=== PATIENT | female | born 1980 | race African-American/Black ===

== ENCOUNTER 2016-06-23 21:19 | Emergency (ER) | payer SELFPAY ==
--- NOTE | 2016-06-24 03:09 | ER Document Report ---
ED Flu Like - General Chief Complaint: Flu Symptoms Stated Complaint: FLU LIKE SYMPTOMS Time seen by provider: 03:04 Mode of Arrival: Ambulatory Information source: Patient Notes: 35-year-old female presents to ED for cough congestion sore throat bodyaches and nasal drainage since Thursday. She denies any fever or nausea or vomiting. TRAVEL OUTSIDE OF THE [place] IN LAST 30 DAYS: No - HPI Onset: Other - Thursday Timing/Duration: Persistent Quality of pain: Achy Severity: Moderate Pain Level: 3 CO exposure: No Associated symptoms: Body/muscle aches, Nonproductive cough, Rhinnorhea. denies : Fever Similar symptoms previously: Yes - Related Data Allergies/Adverse Reactions: amoxicillin Allergy (Verified 06/23/16 22:16) Past Medical History - General Information source: Patient - Social History Smoking Status: Current Every Day Smoker Cigarette use (# per day): Yes - 5-6 cigarettes a day Chew tobacco use (# tins/day): No Smoking Education Provided: Yes - less than 2 minutes Frequency of alcohol use: Occasional Drug Abuse: Marijuana Occupation: assisted living Lives with: Alone - With child Family History: CAD, COPD, CVA, DM, Hypertension Patient has suicidal ideation: No Patient has homicidal ideation: No - Past Medical History Cardiac Medical History: Reports: None Pulmonary Medical History: Reports: Hx Asthma - as a child EENT Medical History: Reports: None Neurological Medical History: Reports: None Endocrine Medical History: Reports: None Renal/ Medical History: Reports: None Malignancy Medical History: Reports: None GI Medical History: Reports: None Musculoskeltal Medical History: Reports None Skin Medical History: Reports None Psychiatric Medical History: Reports: None Traumatic Medical History: Reports: None Infectious Medical History: Reports: None Surgical Hx: Negative Past Surgical History: Reports: None - Immunizations Immunizations up to date: Yes Hx Diphtheria, Pertussis, Tetanus Vaccination: Yes Review of Systems - Review of Systems Constitutional: No symptoms reported EENT: No symptoms reported, Nose discharge, Sinus discharge Cardiovascular: No symptoms reported Respiratory: Cough Gastrointestinal: No symptoms reported Genitourinary: No symptoms reported Female Genitourinary: No symptoms reported Musculoskeletal: No symptoms reported Skin: No symptoms reported Hematologic/Lymphatic: No symptoms reported Neurological/Psychological: No symptoms reported -: Yes All other systems reviewed and negative Physical Exam - Vital signs Vitals: Temp Pulse Resp BP 97.9 F 90 18 122/80 06/23/16 22:02 06/23/16 22:02 06/23/16 22:02 06/23/16 22:02 Interpretation: Normal - General General appearance: Appears well, Alert - HEENT Head: Normocephalic, Atraumatic Eyes: Normal Pupils: PERRL Ears: Normal External canal: Normal Tympanic membrane: Normal Sinus: Normal Nasal: Normal Mouth/Lips: Normal Neck: Normal - Respiratory Respiratory status: No respiratory distress Chest status: Nontender Breath sounds: Nonproductive cough Chest palpation: Normal - Cardiovascular Rhythm: Regular Heart sounds: Normal auscultation Murmur: No - Abdominal Inspection: Normal Distension: No distension Bowel sounds: Normal Tenderness: Nontender Organomegaly: No organomegaly - Back Back: Normal, Nontender - Extremities General upper extremity: Normal inspection, Nontender, Normal color, Normal ROM , Normal temperature General lower extremity: Normal inspection, Nontender, Normal color, Normal ROM , Normal temperature, Normal weight bearing. No: Mariia's sign - Neurological Neuro grossly intact: Yes Cognition: Normal Orientation: AAOx4 Toribio Coma Scale Eye Opening: Spontaneous Toribio Coma Scale Verbal: Oriented Toribio Coma Scale Motor: Obeys Commands [place] Coma Scale Total: 15 Speech: Normal Motor strength normal: LUE, RUE, LLE, RLE Sensory: Normal - Psychological Associated symptoms: Normal affect, Normal mood - Skin Skin Temperature: Warm Skin Moisture: Dry Skin Color: Normal Course - Vital Signs Vital signs: Temp Pulse Resp BP Pulse Ox 97.9 F 90 18 122/80 06/23/16 22:02 06/23/16 22:02 06/23/16 22:02 06/23/16 22:02 Discharge - Discharge Clinical Impression: URI (upper respiratory infection) Qualifiers: URI type: unspecified URI Qualified Code(s): J06.9 - Acute upper respiratory infection, unspecified Condition: Stable Disposition: HOME, SELF-CARE Instructions: Family Physicians / Practices Additional Instructions: UPPER RESPIRATORY ILLNESS: You have a viral infection of the respiratory passages -- a "cold." This common infection causes nasal congestion, drainage, and often sore throat and cough. It is highly contagious. The disease usually lasts about 10 to 14 days. There is no "cure" for the viral infection -- it must run its course. If there is a complication, such as bacterial infection in the nose, sinuses, middle ear, or bronchial tubes, antibiotics may be required. The antibiotics won't affect the virus. Drink plenty of fluids. A humidifier may help. An expectorant medication or decongestant may make you more comfortable. Use acetaminophen or ibuprofen for fever or aches. See the doctor if fever persists over two days, if there is any significant worsening of your symptoms, or if you simply fail to improve as expected. DECONGESTANT MEDICATION: A decongestant medicine has been prescribed. Often this medicine is combined in the same tablet with an antihistamine or expectorant. This type of medicine is helpful in treating a bad cold or sinus condition, as well as in treatment of the nasal congestion of hay fever. It is not of much benefit for lung infections. Decongestant medicines are related to stimulants. They can cause an increase in blood pressure and heart rate. Persons with heart disease and high blood pressure should not take decongestants without discussing this with the physician. If you develop palpitations, chest pain, headache, or tremors, stop the medicine and consult your physician. COUGH-SUPPRESSANT & EXPECTORANT MEDICATION: You are to use a cough medication as needed for relief of symptoms. This medicine is a combination of an expectorant (to make the mucous thinner and more easily "coughed up") and a cough suppressant (to reduce the frequency of coughing). The cough-suppressant medicine is related to narcotics. You may experience mild nausea and sleepiness. Some patients who are very sensitive to narcotics may have stomach pain from this medicine. Taking the medicine with food reduces these side effects. Do not drive or work with machinery until you know how this medicine affects you. The expectorant should have no side effects. Iodine-containing expectorants (such as organidin) should not be taken by persons with active thyroid disease unless approved by your doctor. Call the doctor if you develop shortness of breath, hives, rash, itching, lightheadedness, or severe nausea and vomiting. USE OF ACETAMINOPHEN (Tylenol): Acetaminophen may be taken for pain relief or fever control. It's much safer than aspirin, offering a wider range of "safe" dosages. It is safe during . Some brand names are Tylenol, Panadol, Datril, Anacin 3, Tempra, and Liquiprin. Acetaminophen can be repeated every four hours. The following are maximum recommended dosages: >89 pounds or adults 650 mg to 900 mg Acetaminophen can be repeated every four hours. Maximum dose not to exceed 4000 mg a day. SMOKING: If you smoke, you should stop smoking. The tar and chemicals in cigarette smoke are harmful. Smoking has been shown to cause: emphysema chronic bronchitis lung cancer mouth and throat cancer stomach and pancreas cancer premature aging defects In addition, smoking increases ear and lung infections in children of smokers. FOLLOW-UP CARE: If you have been referred to a physician for follow-up care, call the physician s office for an appointment as you were instructed or within the next two days. If you experience worsening or a significant change in your symptoms, notify the physician immediately or return to the Emergency Department at any time for re-evaluation. Forms: Return to Work, Smoking Cessation Education
[2016-06-24 03:12] VITALS: BP 122/88
== END 2016-06-24 03:12 | disposition home or self-care (01) ==
LOC: ER 21:19
DX: J06.9 Acute upper respiratory infection, unspecified (principal); R05 Cough; R09.81 Nasal congestion; J02.9 Acute pharyngitis, unspecified; R52 Pain, unspecified; F17.210 Nicotine dependence, cigarettes, uncomplicated
CPT/HCPCS: 87070; 87804; 87880; 99283

== ENCOUNTER 2016-11-01 01:36 | Emergency (ER) | payer SELFPAY ==
[2016-11-01] MEDS ORDERED: ONDANSETRON 4 MG TAB.RAPDIS PO ONE (03:42)
[2016-11-01] MEDS ORDERED: FAMOTIDINE 20 MG TABLET PO ONE (03:42)
--- NOTE | 2016-11-01 03:43 | ER Document Report ---
ED GI/ - General Chief Complaint: Abdominal Pain Stated Complaint: STOMACH PAIN AND VOMITING Time Seen by Provider: 11/01/16 03:31 Notes: Patient is a 35-year-old female that comes emergency department for chief complaint of nausea and a "stomach upset". She states that she vomited to 3 times, nonbloody, states she had a normal bowel movement earlier today. She reports some abdominal cramping, denies any specific areas of pain, denies flank pain, denies dysuria, denies vaginal bleeding or discharge. Patient states she was exposed to her mother almost 2 days ago who also had vomiting/ sick symptoms. Patient denies any surgeries, daily medications, LMP 4 weeks ago. TRAVEL OUTSIDE OF THE [place] IN LAST 30 DAYS: No COUNTRY TRAVELED TO/FROM: [facility] - Related Data Allergies/Adverse Reactions: amoxicillin Allergy (Verified 06/23/16 22:16) Past Medical History - General Information source: Patient - Social History Smoking Status: Current Every Day Smoker Chew tobacco use (# tins/day): No Frequency of alcohol use: None Drug Abuse: Marijuana Lives with: Family Family History: CAD, COPD, CVA, DM, Hypertension Patient has suicidal ideation: No Patient has homicidal ideation: No Pulmonary Medical History: Reports: Hx Asthma - as a child Renal/ Medical History: Denies: Hx Peritoneal Dialysis Surgical Hx: Negative - Immunizations Immunizations up to date: Yes Hx Diphtheria, Pertussis, Tetanus Vaccination: Yes Review of Systems - Review of Systems Constitutional: No symptoms reported EENT: No symptoms reported Cardiovascular: No symptoms reported Respiratory: No symptoms reported Gastrointestinal: See HPI Genitourinary: No symptoms reported Female Genitourinary: No symptoms reported Musculoskeletal: No symptoms reported Skin: No symptoms reported Hematologic/Lymphatic: No symptoms reported Neurological/Psychological: No symptoms reported Physical Exam - Vital signs Vitals: Temp Pulse Resp BP Pulse Ox 98.5 F 99 18 105/70 98 11/01/16 01:52 11/01/16 01:52 11/01/16 01:52 11/01/16 01:52 11/01/16 01:52 Interpretation: Normal - General General appearance: Appears well, Alert In distress: None - HEENT Head: Normocephalic, Atraumatic Eyes: Normal Conjunctiva: Normal Extraocular movements intact: Yes Eyelashes: Normal Pupils: PERRL Nasal: Normal Mouth/Lips: Normal Mucous membranes: Normal Pharynx: Normal Neck: Normal - Respiratory Respiratory status: No respiratory distress Chest status: Nontender Breath sounds: Normal Chest palpation: Normal - Cardiovascular Rhythm: Regular Heart sounds: Normal auscultation Murmur: No - Abdominal Inspection: Normal Distension: No distension Bowel sounds: Normal Tenderness: Nontender. No: Tender, Guarding - Benign abdomen throughout Organomegaly: No organomegaly - Back Back: Normal, Nontender. No: Tender - Extremities General upper extremity: Normal inspection, Nontender, Normal color, Normal ROM , Normal temperature General lower extremity: Normal inspection, Nontender, Normal color, Normal ROM , Normal temperature, Normal weight bearing. No: Mariia's sign - Neurological Neuro grossly intact: Yes Cognition: Normal Orientation: AAOx4 Toribio Coma Scale Eye Opening: Spontaneous [place] Coma Scale Verbal: Oriented [place]biio Coma Scale Motor: Obeys Commands [place] Coma Scale Total: 15 Speech: Normal Motor strength normal: LUE, RUE, LLE, RLE Sensory: Normal - Psychological Associated symptoms: Normal affect, Normal mood - Skin Skin Temperature: Warm Skin Moisture: Dry Skin Color: Normal Course - Re-evaluation Re-evalutation: Patient with nausea and vomiting is her only symptom. Soft abdomen, no CVA tenderness, unremarkable oral and lung exam. Patient is well-appearing on exam. Urinalysis does not show any evidence of acidosis, hyperglycemia, infection, or other concerning abnormality. After Zofran symptoms resolved. Patient tolerated fluids by mouth without any difficulty. Suspect this is a virus, patient has been exposed to someone with similar symptoms, discharged with Zofran, return precautions, patient states understanding and agreement. - Vital Signs Vital signs: Temp Pulse Resp BP Pulse Ox 98.2 F 83 16 99/60 L 97 11/01/16 04:44 11/01/16 04:44 11/01/16 04:44 11/01/16 04:44 11/01/16 04:44 - Laboratory Laboratory results interpreted by me: 11/01/16 03:45 Urine Urobilinogen 2.0 H Ur Leukocyte Esterase TRACE H Discharge - Discharge Clinical Impression: Vomiting Qualifiers: Vomiting type: unspecified Vomiting Intractability: non-intractable Nausea presence: with nausea Qualified Code(s): R11.2 - Nausea with vomiting, unspecified Condition: Stable Disposition: HOME, SELF-CARE Additional Instructions: Your workup shows no concerning abnormality. This is most likely viral. Rest, hydrate, take the meds as prescribed. Start with bland food. Follow up with Primary Care. Return to the ED for any concerning or worsening symptoms - uncontrolled vomiting, fever, developing abdominal or back pain, etc. Prescriptions: Famotidine [Pepcid 20 mg Tablet] 20 mg PO BID #20 tablet Ondansetron [Zofran Odt 4 mg Tablet] 1 - 2 tab PO Q4H PRN #20 tab.rapdis PRN Reason: For Nausea/Vomiting Forms: Return to Work
[2016-11-01 04:15] LABS: APPEARANCE,URINE SLIGHTLY-CLOUDY; BILIRUBIN,URINE NEGATIVE (NEGATIVE); GLUCOSE, URINE NEGATIVE (NEGATIVE); KETONES,URINE NEGATIVE (NEGATIVE); LEUKOCYTE ESTERASE,URINE TRACE (NEGATIVE); NITRITE,URINE NEGATIVE (NEGATIVE); PROTEIN,URINE NEGATIVE (NEGATIVE); URINE SPECIFIC GRAVITY 1.014
[2016-11-01] MEDS ORDERED: ONDANSETRON ODT 4 MG TAB (6 TAB/DSPK) PO PRN (04:34)
[2016-11-01 04:45] VITALS: BP 99/60
== END 2016-11-01 04:46 | disposition home or self-care (01) ==
LOC: ER 01:36
DX: R11.2 Nausea with vomiting, unspecified (principal); R10.9 Unspecified abdominal pain; F17.200 Nicotine dependence, unspecified, uncomplicated; Z88.0 Allergy status to penicillin
CPT/HCPCS: 99284; 81025; 81001; S0119

== ENCOUNTER 2017-01-29 16:14 | Emergency (ER) | payer SELFPAY ==
[2017-01-29 16:18] VITALS: BP 119/83
--- NOTE | 2017-01-29 16:52 | RADIOLOGY REPORT (SQ) ---
EXAM DESCRIPTION: ANKLE RIGHT COMPLETE COMPLETED DATE/TIME: 01/29/2017 4:42 pm REASON FOR STUDY: pain COMPARISON: None. NUMBER OF VIEWS: Three views. TECHNIQUE: AP, lateral, and oblique without weight bearing radiographic images acquired of the right ankle. LIMITATIONS: None. FINDINGS: MINERALIZATION: Normal. BONES: No acute fracture or dislocation. No worrisome bone lesions. No significant osteophytes. JOINTS: No effusions. SOFT TISSUES: No soft tissue swelling. No foreign body. OTHER: No other significant finding. IMPRESSION: NO SIGNIFICANT FINDING IN THE RIGHT ANKLE. NO EXPLANATION FOR PAIN. TECHNICAL DOCUMENTATION: JOB ID: [id number] [employer]- All Rights Reserved
--- NOTE | 2017-01-29 17:09 | ER Document Report ---
ED Extremity Problem, Lower - General Chief Complaint: Ankle Pain Stated Complaint: RIGHT ANKLE PAIN Time Seen by Provider: 01/29/17 16:28 Mode of Arrival: Ambulatory Information source: Patient Notes: Patient is a 36-year-old female who presents to the ER today for right ankle pain to the inside of the ankle after she has had to walk everywhere for the past couple of weeks. Patient states her car has been broken and she has been walking to and from work, started having ankle pain 3 days ago. She denies any injury. She denies any swelling or bruising. She denies numbness or tingling. TRAVEL OUTSIDE OF THE [place] IN LAST 30 DAYS: No COUNTRY TRAVELED TO/FROM: [facility] - Related Data Allergies/Adverse Reactions: amoxicillin Allergy (Verified 01/29/17 16:17) Past Medical History - General Information source: Patient - Social History Smoking Status: Unknown if Ever Smoked Family History: CAD, COPD, CVA, DM, Hypertension Pulmonary Medical History: Reports: Hx Asthma - as a child Renal/ Medical History: Denies: Hx Peritoneal Dialysis - Immunizations Immunizations up to date: Yes Hx Diphtheria, Pertussis, Tetanus Vaccination: Yes Review of Systems - Review of Systems Constitutional: No symptoms reported EENT: No symptoms reported Cardiovascular: No symptoms reported Respiratory: No symptoms reported Gastrointestinal: No symptoms reported Genitourinary: No symptoms reported Female Genitourinary: No symptoms reported Musculoskeletal: See HPI Skin: No symptoms reported Hematologic/Lymphatic: No symptoms reported Neurological/Psychological: No symptoms reported Physical Exam - Vital signs Vitals: Temp Pulse Resp BP Pulse Ox 98.8 F 80 14 119/83 99 01/29/17 16:17 01/29/17 16:17 01/29/17 16:17 01/29/17 16:17 01/29/17 16:17 - Notes Notes: PHYSICAL EXAMINATION: GENERAL: Well-appearing and in no acute distress. HEAD: Atraumatic, normocephalic. EYES: Pupils equal round and reactive to light, extraocular movements intact, sclera anicteric, conjunctiva are normal. NECK: Normal range of motion, supple without lymphadenopathy LUNGS: CTAB and equal. No wheezes rales or rhonchi. HEART: Regular rate and rhythm without murmurs EXTREMITIES: mildly tender to medial right ankle, medial malleolus, Normal range of motion, no pitting edema. No cyanosis. NEUROLOGICAL: Cranial nerves grossly intact. Normal sensory/motor exams. PSYCH: Normal mood, normal affect. SKIN: Warm, Dry, normal turgor, no rashes or lesions noted Course - Re-evaluation Re-evalutation: 01/29/17 17:12 X-ray negative for any acute pathology. Patient was placed in Mike wrap and declined crutches. - Vital Signs Vital signs: Temp Pulse Resp BP Pulse Ox 98.8 F 80 14 119/83 99 01/29/17 16:17 01/29/17 16:17 01/29/17 16:17 01/29/17 16:17 01/29/17 16:17 Discharge - Discharge Clinical Impression: Ankle sprain Qualifiers: Encounter type: initial encounter Involved ligament of ankle: unspecified ligament Laterality: right Qualified Code(s): S93.401A - Sprain of unspecified ligament of right ankle, initial encounter Condition: Stable Disposition: HOME, SELF-CARE Instructions: Sprained Ankle ([facility]) Additional Instructions: Return immediately for any new or worsening symptoms. Follow up with primary care provider, call tomorrow to make followup appointment. Prescriptions: Ibuprofen [Motrin 800 mg Tablet] 800 mg PO Q8H PRN #30 tab PRN Reason: Forms: Return to Work Referrals: LOREE ARGUETA MD [Primary Care Provider] - Follow up as needed
== END 2017-01-29 17:39 | disposition home or self-care (01) ==
LOC: ER 16:14
DX: S93.401A Sprain of unspecified ligament of right ankle, initial encounter (principal); M25.571 Pain in right ankle and joints of right foot; X58.XXXA Exposure to other specified factors, initial encounter
CPT/HCPCS: 99283

== ENCOUNTER 2018-01-03 00:57 | Emergency (ER) | payer SELFPAY ==
[2018-01-03] MEDS ORDERED: MORPHINE SULFATE 10 MG/ML INJ IV ONE (02:22)
[2018-01-03] MEDS ORDERED: NORMAL SALINE 1000 ML 1,000 ML IV ONE (02:22)
[2018-01-03] MEDS ORDERED: ONDANSETRON HCL INJ/PF 4 MG/2 ML SDV IV ONE (02:23)
[2018-01-03 02:37] LABS: ABSOLUTE EOSINOPHILS # (AUTO) 0.2 10^3/uL (0.0-0.6); ABSOLUTE LYMPHOCYTES (AUTO) 2.8 10^3/uL (0.5-4.7); ABSOLUTE MONOCYTES (AUTO) 0.4 10^3/uL (0.1-1.4); ABSOLUTE NEUT (AUTO) 3.7 10^3/uL (1.7-8.2); BASOPHILS % (AUTO) 0.3 % (0-2); EOSINOPHILS % (AUTO) 2.7 % (0-6); HEMATOCRIT 38.8 % (36.0-47.0); HEMOGLOBIN 13.1 g/dL (12.0-15.5); LYMPHOCYTES % (AUTO) 39.8 % (13-45); MEAN CORPUSCULAR HEMOGLOBIN 27.4 pg (27.0-33.4); MEAN CORPUSCULAR HGB CONC 33.6 g/dL (32.0-36.0); MEAN CORPUSCULAR VOLUME 81 fl (80-97); MONOCYTES % (AUTO) 5.4 % (3-13); PLATELET COUNT 174 10^3/uL (150-450); RED BLOOD COUNT 4.77 10^6/uL (3.72-5.28); RED CELL DISTRIBUTION WIDTH 14.8 % (11.5-14.0); SEGMENTED NEUTROPHILS % (AUTO) 51.8 % (42-78); TOTAL CELLS COUNTED % (AUTO) 100 %; WHITE BLOOD COUNT 7.2 10^3/uL (4.0-10.5)
[2018-01-03 02:48] LABS: ALANINE AMINOTRANSFERASE 16 U/L (9-52); ALBUMIN 3.3 g/dL (3.5-5.0); ALKALINE PHOSPHATASE 46 U/L (38-126); ANION GAP 7 (5-19); ASPARTATE AMINO TRANSFERASE 18 U/L (14-36); BILIRUBIN,DIRECT 0.2 mg/dL (0.0-0.4); BILIRUBIN,TOTAL 0.2 mg/dL (0.2-1.3); BLOOD UREA NITROGEN 4 mg/dL (7-20); CARBON DIOXIDE 27 mmol/L (22-30); CHLORIDE 108 mmol/L (98-107); GLUCOSE 82 mg/dL (75-110); POTASSIUM 3.5 mmol/L (3.6-5.0); SODIUM 142.3 mmol/L (137-145); TOTAL PROTEIN 5.9 g/dL (6.3-8.2)
[2018-01-03] MEDS ORDERED: KETOROLAC TROMETHAMINE INJ/PF 30 MG/1 ML SDV IV ONE (02:53)
[2018-01-03 03:01] LABS: APPEARANCE,URINE SLIGHTLY-CLOUDY; BILIRUBIN,URINE NEGATIVE (NEGATIVE); COLOR,URINE YELLOW; GLUCOSE, URINE NEGATIVE (NEGATIVE); KETONES,URINE NEGATIVE (NEGATIVE); LEUKOCYTE ESTERASE,URINE NEGATIVE (NEGATIVE); NITRITE,URINE NEGATIVE (NEGATIVE); PROTEIN,URINE NEGATIVE (NEGATIVE); URINE SPECIFIC GRAVITY 1.009; UROBILINOGEN,URINE NEGATIVE mg/dL (<2.0)
--- NOTE | 2018-01-03 03:02 | ER Document Report ---
ED GI/ - General Chief Complaint: Abdominal Pain Stated Complaint: ABDOMINAL PAIN Time Seen by Provider: 01/03/18 01:20 Notes: 37-year-old female patient presents to the emergency department with cramping left lower quadrant and left upper quadrant abdominal pain intermittent since Thursday morning. Patient stated she has not eaten much in the last few days but also denies nausea vomiting diarrhea. Last bowel movement was 2 hours prior to arrival states was normal. Denies any bloody or mucoid feces. Last menstrual period 12/22/2017, admits to a history of ovarian cyst but does not remember what side it was on. denies any surgeries, currently on no medications. TRAVEL OUTSIDE OF THE [place] IN LAST 30 DAYS: No COUNTRY TRAVELED TO/FROM: [facility] - Related Data Allergies/Adverse Reactions: amoxicillin [From Augmentin] Allergy (Verified 01/03/18 01:31) clavulanic acid [From Augmentin] Allergy (Verified 01/03/18 01:31) Past Medical History - Social History Smoking Status: Current Every Day Smoker Frequency of alcohol use: Occasional Drug Abuse: Marijuana Family History: CAD, COPD, CVA, DM, Hypertension Patient has suicidal ideation: No Patient has homicidal ideation: No Pulmonary Medical History: Reports: Hx Asthma - as a child Renal/ Medical History: Denies: Hx Peritoneal Dialysis - Immunizations Immunizations up to date: Yes Hx Diphtheria, Pertussis, Tetanus Vaccination: Yes Physical Exam - Vital signs Vitals: Temp Pulse Resp BP Pulse Ox 98 F 81 14 130/89 H 98 01/03/18 01:00 01/03/18 01:00 01/03/18 01:00 01/03/18 01:00 01/03/18 01:00 Course - Re-evaluation Re-evalutation: Discussed with patient lab results and also urine results. Patient stated abdominal pain is better since medications, rates it 1 out of 10. Patient has no abdominal distention or rigidity, I do not think this is an acute abdomen. Patient continues to deny any vaginal complaints, states she only has one sexual partner. Talked to patient about possible need for CT scan, patient states due to pain resolving she wishes to not do imaging. States she feels hungry. Talked to patient about follow-up with primary care in the next 24-48 hours, or return to emergency department should abdominal pain return, develops intractable nausea, vomiting, diarrhea or fevers. - Vital Signs Vital signs: Temp Pulse Resp BP Pulse Ox 97.8 F 60 15 112/62 97 01/03/18 04:23 01/03/18 04:23 01/03/18 04:23 01/03/18 04:23 01/03/18 04:23 - Laboratory Result Diagrams: 01/03/18 02:29 01/03/18 02:29 Laboratory results interpreted by me: 01/03/18 01/03/18 02:29 02:29 RDW 14.8 H Potassium 3.5 L Chloride 108 H BUN 4 L Total Protein 5.9 L Albumin 3.3 L Discharge - Discharge Clinical Impression: Abdominal pain Qualifiers: Abdominal location: left lower quadrant Qualified Code(s): R10.32 - Left lower quadrant pain Condition: Stable Disposition: HOME, SELF-CARE Instructions: Abdominal Pain ([facility]), Antispasmodics ([facility]) Additional Instructions: You were seen in the emergency department for abdominal pain. Labs reveal no obvious abnormalities. There is no need for other imaging at this time. Should pain get worse, you start vomiting, has bloody diarrhea, or start with a fever please return to the ED. Take prescribed medications for pain and follow-up with primary care within 24- 48 hours. Prescriptions: Ketorolac Tromethamine [Toradol 10 mg Tablet] 10 mg PO Q8HP PRN #24 tablet PRN Reason: Dicyclomine HCl [Bentyl 20 mg Tablet] 20 mg PO QID #40 tablet Forms: Smoking Cessation Education Referrals: MARYA ESPINOZA DO [Primary Care Provider] - Follow up as needed
[2018-01-03 04:24] VITALS: BP 112/62
== END 2018-01-03 04:42 | disposition home or self-care (01) ==
LOC: ER 00:57
DX: R10.32 Left lower quadrant pain (principal); R10.12 Left upper quadrant pain; F17.200 Nicotine dependence, unspecified, uncomplicated; Z87.42 Personal history of other diseases of the female genital tract; Z88.0 Allergy status to penicillin
CPT/HCPCS: 99284; 96361; 96374; 96375; 36415; 85025; 81025; 80053; 81001; J1885; J2405; J7030

== ENCOUNTER 2018-07-05 00:14 | Emergency (ER) | payer SELFPAY ==
[2018-07-05] MEDS ORDERED: KETOROLAC TROMETHAMINE INJ/PF 30 MG/1 ML SDV IV ONE (00:57)
[2018-07-05] MEDS ORDERED: NORMAL SALINE 1000 ML 1,000 ML IV ONE (00:57)
[2018-07-05 01:23] LABS: ABSOLUTE EOSINOPHILS # (AUTO) 0.3 10^3/uL (0.0-0.6); ABSOLUTE LYMPHOCYTES (AUTO) 2.3 10^3/uL (0.5-4.7); ABSOLUTE MONOCYTES (AUTO) 0.5 10^3/uL (0.1-1.4); BASOPHILS % (AUTO) 0.4 % (0-2); EOSINOPHILS % (AUTO) 2.8 % (0-6); HEMATOCRIT 39.8 % (36.0-47.0); HEMOGLOBIN 13.5 g/dL (12.0-15.5); LYMPHOCYTES % (AUTO) 22.8 % (13-45); MEAN CORPUSCULAR HEMOGLOBIN 27.5 pg (27.0-33.4); MEAN CORPUSCULAR VOLUME 81 fl (80-97); MONOCYTES % (AUTO) 5.3 % (3-13); PLATELET COUNT 206 10^3/uL (150-450); RED BLOOD COUNT 4.93 10^6/uL (3.72-5.28); RED CELL DISTRIBUTION WIDTH 14.6 % (11.5-14.0); SEGMENTED NEUTROPHILS % (AUTO) 68.7 % (42-78); TOTAL CELLS COUNTED % (AUTO) 100 %; WHITE BLOOD COUNT 10.2 10^3/uL (4.0-10.5)
[2018-07-05 01:41] LABS: ALANINE AMINOTRANSFERASE 11 U/L (9-52); ALBUMIN 4.2 g/dL (3.5-5.0); ALKALINE PHOSPHATASE 57 U/L (38-126); ANION GAP 5 (5-19); ASPARTATE AMINO TRANSFERASE 50 U/L (14-36); BILIRUBIN,DIRECT 0.3 mg/dL (0.0-0.4); BILIRUBIN,TOTAL 0.7 mg/dL (0.2-1.3); BLOOD UREA NITROGEN 7 mg/dL (7-20); CALCIUM 9.4 mg/dL (8.4-10.2); CARBON DIOXIDE 29 mmol/L (22-30); CHLORIDE 106 mmol/L (98-107); GLUCOSE 92 mg/dL (75-110); POTASSIUM 3.7 mmol/L (3.6-5.0); SODIUM 140.1 mmol/L (137-145); TOTAL PROTEIN 7.1 g/dL (6.3-8.2)
[2018-07-05 02:17] LABS: APPEARANCE,URINE SLIGHTLY-CLOUDY; BILIRUBIN,URINE NEGATIVE (NEGATIVE); COLOR,URINE YELLOW; GLUCOSE, URINE NEGATIVE (NEGATIVE); KETONES,URINE NEGATIVE (NEGATIVE); LEUKOCYTE ESTERASE,URINE MODERATE (NEGATIVE); NITRITE,URINE NEGATIVE (NEGATIVE); PROTEIN,URINE NEGATIVE (NEGATIVE); URINE SPECIFIC GRAVITY 1.006
[2018-07-05 02:30] VITALS: BP 101/59
[2018-07-05] MEDS ORDERED: DOXYCYCLINE HYCLATE 100 MG TABLET PO ONE (02:35)
[2018-07-05] MEDS ORDERED: CEFTRIAXONE 1 GM/D5W RTU 1 GM/50 ML RTUPB IV ONE (02:35)
--- NOTE | 2018-07-05 05:47 | ER Document Report ---
Entered by ALFIE RASMUSSEN SCRIBE 07/05/18 0104 Acting as scribe for:DAVID SINGLETARY MD ED GI/ - General Chief Complaint: Abdominal Pain Stated Complaint: ABDOMINAL PAIN Time Seen by Provider: 07/05/18 00:44 Primary Care Provider: MARYA ESPINOZA DO [Primary Care Provider] - Follow up as needed Mode of Arrival: Ambulatory Information source: Patient Notes: 37 year old female that presents to the emergency department today with complaints of lower abdominal pain that began when the patient woke up this morning. Patient states that her period also began today, which was on time. Patient states that her pain today is similar to period cramps but more severe. 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 Patient states she had a normal bowel movement this morning. Patient states her pain increased with ambulation. Patient denies any nausea, vomiting, or vaginal discharge. TRAVEL OUTSIDE OF THE [place] IN LAST 30 DAYS: No COUNTRY TRAVELED TO/FROM: [facility] - Related Data Allergies/Adverse Reactions: amoxicillin [From Augmentin] Allergy (Verified 01/03/18 01:31) clavulanic acid [From Augmentin] Allergy (Verified 01/03/18 01:31) Past Medical History - General Information source: Patient - Social History Smoking Status: Current Every Day Smoker Cigarette use (# per day): Yes - 1/2 ppd Occupation: SPEECH PATHOLOGIST Lives with: Family Family History: Reviewed & Not Pertinent, CAD, COPD, CVA, DM, Hypertension Pulmonary Medical History: Reports: Hx Asthma - as a child Surgical Hx: Negative - Immunizations Immunizations up to date: Yes Hx Diphtheria, Pertussis, Tetanus Vaccination: Yes Review of Systems - Review of Systems Constitutional: No symptoms reported EENT: No symptoms reported Cardiovascular: See HPI, Other - near syncope Respiratory: No symptoms reported Gastrointestinal: See HPI, Abdominal pain. denies: Nausea Genitourinary: No symptoms reported Female Genitourinary: See HPI, Last menstrual period - started today Musculoskeletal: No symptoms reported Skin: No symptoms reported Hematologic/Lymphatic: No symptoms reported Neurological/Psychological: No symptoms reported -: Yes All other systems reviewed and negative Physical Exam - Vital signs Vitals: Temp Pulse Resp BP Pulse Ox 99.1 F 99 16 116/77 99 07/05/18 00:19 07/05/18 00:19 07/05/18 00:19 07/05/18 00:19 07/05/18 00:19 - Notes Notes: Physical Exam: General: Alert, appears well. HEENT: Normocephalic. Atraumatic. PERRL. Extraocular movements intact. Oropharynx clear. Neck: Supple. Non-tender. Respiratory: No respiratory distress. Clear and equal breath sounds bilaterally. Cardiovascular: Regular rate and rhythm. Abdominal: Minimal lower abdominal tenderness with palpation. No distension. Hypoactive Bowel Sounds. Back: Non-tender. No deformity or step off. Extremities: Moves all four extremities. Upper extremities: Normal inspection. Normal ROM. Lower extremities: Normal inspection. No edema. Normal ROM. Neurological: Normal cognition. AAOx4. Normal speech. Psychological: Normal affect. Normal Mood. Skin: Warm. Dry. Normal color. Course - Vital Signs Vital signs: Temp Pulse Resp BP Pulse Ox 98.5 F 76 16 101/59 L 95 07/05/18 02:29 07/05/18 02:29 07/05/18 02:29 07/05/18 02:29 07/05/18 02:29 - Laboratory Result Diagrams: 07/05/18 01:00 07/05/18 01:00 Laboratory results interpreted by me: 07/05/18 07/05/18 07/05/18 01:00 01:00 01:57 RDW 14.6 H AST 50 H Urine Blood LARGE H Urine Urobilinogen 2.0 H Ur Leukocyte Esterase MODERATE H Discharge - Discharge Clinical Impression: Pelvic pain, Menstrual cramps Condition: Stable Disposition: HOME, SELF-CARE Additional Instructions: Pelvic Pain: There are many causes of pain in the pelvic area. The cause could be the tubes, ovaries, uterus, intestines, appendix, pelvic muscles and connective tissue, or the urinary tract. The cause of your pelvic pain is not clear. However, it seems safe to treat you outside the hospital. If the pain sounds like a temporary problem, we sometimes wait to see if it goes away. Other patients may need additional tests, such as pelvic ultrasound or cultures. Conditions may change. Call us or come back for reexamination if any problems occur, such as: (1) Pain that becomes more severe, steady, or becomes concentrated in one specific area. Also, pain that is more severe with movement or coughing. (2) Vomiting that persists or becomes more frequent. (3) Blood in the vomitus, urine, or bowel movements. Blood in the stool may have a tarry or black appearance. (4) Shaking chills or fever greater than 100 degrees. (5) The abdomen becomes more distended or swollen. (6) Bowel movements cease. (7) Heavy vaginal bleeding. Take the medications as prescribed. Take ibuprofen 800 mg every 8 hours for pain if needed. Follow-up with [facility] or your primary care provider if not improving. RETURN TO THE EMERGENCY ROOM IF ANY NEW OR WORSENING SYMPTOMS. Prescriptions: Doxycycline Hyclate 100 mg PO BID #14 tablet.dr Forms: Return to Work Referrals: MARYA ESPINOZA DO [Primary Care Provider] - Follow up as needed Bridgette Attestation: 07/05/18 01:37 I personally performed the services described in the documentation, reviewed and edited the documentation which was dictated to the scribe in my presence, and it accurately records my words and actions. I personally performed the services described in the documentation, reviewed and edited the documentation which was dictated to the scribe in my presence, and it accurately records my words and actions.
== END 2018-07-05 03:28 | disposition home or self-care (01) ==
LOC: ER 00:14
DX: N94.6 Dysmenorrhea, unspecified (principal); R10.30 Lower abdominal pain, unspecified; F17.210 Nicotine dependence, cigarettes, uncomplicated; Z88.0 Allergy status to penicillin
CPT/HCPCS: 36415; 87086; 84702; 85025; 87088; 80053; 81001; J1885; J7030; J0696

== ENCOUNTER 2018-09-03 08:18 | Emergency (ER) | payer SELFPAY ==
[2018-09-03] MEDS ORDERED: LIDOCAINE 4%/TETRACAINE 0.5%/EPI 0.18% 5 ML TOPICAL SOLN TOP ONE (08:58)
--- NOTE | 2018-09-03 09:08 | ER Document Report ---
ED General - General Chief Complaint: Abscess Stated Complaint: ABSCESS Time Seen by Provider: 09/03/18 08:41 Primary Care Provider: MARYA ESPINOZA DO [Primary Care Provider] - Follow up as needed Mode of Arrival: Ambulatory Information source: Patient Notes: Patient is a well-appearing 37-year-old female who presents to the ED with large pimple near her right orbit. Patient reports about a month ago she had a large pimple that has progressively grown in size. Patient wears glasses and thinks it might be irritating the pimple, denies contact use. Over the past week, she has noted it is more indurated and painful. She has history of recurrent acne that has required drainage in the past. Denies history of MRSA. She does not take any medications or have a significant past medical history. Patient does not have insurance. Denies fever, chills, blurry vision, eye pain, facial swelling, any drainage from the wound site. TRAVEL OUTSIDE OF THE [place] IN LAST 30 DAYS: No COUNTRY TRAVELED TO/FROM: [facility] Onset/Duration: Gradual Quality of pain: Dull, Pressure Severity: Mild Associated symptoms: denies: Chest pain, Chills, Productive cough, Diarrhea, Fever, Headache, Nausea, Vomiting Similar symptoms previously: No Recently seen / treated by doctor: No - Related Data Allergies/Adverse Reactions: amoxicillin [From Augmentin] Allergy (Verified 08/30/18 18:19) clavulanic acid [From Augmentin] Allergy (Verified 08/30/18 18:19) Past Medical History - General Information source: Patient, [facility] Records - Social History Smoking Status: Never Smoker Frequency of alcohol use: None Drug Abuse: None Lives with: Family Family History: Reviewed & Not Pertinent, CAD, COPD, CVA, DM, Hypertension Pulmonary Medical History: Reports: Hx Asthma - as a child Renal/ Medical History: Denies: Hx Peritoneal Dialysis - Immunizations Immunizations up to date: Yes Hx Diphtheria, Pertussis, Tetanus Vaccination: Yes Review of Systems - Review of Systems Constitutional: denies: Chills, Fever, Malaise, Weakness EENT: denies: Eye pain, Eye discharge, Blurred vision, Tearing, Double vision, Sinus pressure, Throat pain, Difficulty swallowing Cardiovascular: denies: Chest pain, Palpitations, Heart racing, Syncope Respiratory: denies: Cough, Short of breath Gastrointestinal: denies: Abdominal pain, Diarrhea, Nausea, Vomiting Genitourinary: denies: Burning, Dysuria, Discharge Physical Exam - Vital signs Vitals: Temp Pulse Resp BP Pulse Ox 98.1 F 96 16 124/88 H 98 09/03/18 08:22 09/03/18 08:22 09/03/18 08:22 09/03/18 08:22 09/03/18 08:22 - Notes Notes: PHYSICAL EXAMINATION: GENERAL: Well-appearing, well-nourished and in no acute distress. HEAD: Atraumatic, normocephalic. EYES: Pupils equal round and reactive to light, extraocular movements intact, conjunctiva are normal. ENT: Nares patent, oropharynx clear without exudates. Moist mucous membranes. NECK: Normal range of motion, supple without lymphadenopathy LUNGS: Breath sounds clear to auscultation bilaterally and equal. No wheezes rales or rhonchi. HEART: Regular rate and rhythm without murmurs ABDOMEN: Soft, nontender, nondistended abdomen. No guarding, no rebound. No masses appreciated. Female : deferred Musculoskeletal: Normal range of motion, no pitting or edema. No cyanosis. NEUROLOGICAL: Cranial nerves grossly intact. Normal speech, normal gait. Normal sensory, motor exams PSYCH: Normal mood, normal affect. SKIN: 3 x 3 cm area of fluctuance, induration on the right baptist. Course - Re-evaluation Re-evalutation: 09/03/18 13:52 Temp Pulse Resp BP Pulse Ox 98.2 F 84 13 120/79 98 09/03/18 11:06 09/03/18 11:06 09/03/18 11:06 09/03/18 11:06 09/03/18 11:06 37-year-old female presents with an abscess to her right baptist region. States it started off as a small pimple. Vital signs reviewed and within normal limits. Patient does not appear toxic or dehydrated. She is in no acute distress. Exam is significant for 3 x 3 area of fluctuance, induration and mild erythema. Prior to I&D I did suspect an infected cyst. LET was placed on the area and an 18-gauge needle was used to drain the area. Significant purulent drainage as well as a thick white drainage was expressed from the wound. Because of the infection is on the patient's face I have decided to cover her with antibiotics. 09/03/18 13:56 Patient was evaluated and treated as appropriate for the patient's presenting symptoms and complaint, with consideration of any critical or life threatening conditions that may be associated with their obtained history and exam as noted above. All results were discussed with patient. Patient provided the opportunity to ask questions, and express concerns. Patient was educated on treatments based on their presumed diagnosis as noted above. At this time we will discharge the patient with return precautions and follow-up recommendations. Verbal discharge instructions given a the bedside. Medication warnings reviewed. Patient is in agreement with this plan and has verbalized understanding of return precautions. After careful consideration I feel that that patient can be safely discharged from the emergency department, they were advised to followup with a primary care physician in 2-3 days. Dictation on this chart was performed using voice recognition software and may result in unintended grammatical, spelling, syntax or errors. - Vital Signs Vital signs: Temp Pulse Resp BP Pulse Ox 98.2 F 84 13 120/79 98 09/03/18 11:06 09/03/18 11:06 09/03/18 11:06 09/03/18 11:06 09/03/18 11:06 - Diagnostic Test Radiology reviewed: Image reviewed, Reports reviewed Procedures - Incision and Drainage Right Face Time completed: 11:00 Type: Simple Anesthetic type: Other - LET Blade size: Other - 18 G needle Incision Method: Incision made with needle Amount/type of drainage: 10 purulent cc Discharge - Discharge Clinical Impression: Infected cyst of skin, Facial infection Condition: Good Disposition: HOME, SELF-CARE Instructions: Abscess ([facility]), Cephalexin ([facility]), Post Incision and Drainage, Trimethoprim-Sulfa ([facility]) Additional Instructions: You were seen for an abscess that required drainage. Please clean this area with soap and water twice daily and apply a topical antibiotic. Dress the area after each cleaning. Please return if you develop fever, vomiting, the pain at the site worsens, you notice spreading redness from the area, or you have any other symptoms that are concerning to you. Please complete your antibiotic course. Return with any worsening redness, fever. Follow up with your [id number] hours for further care or return to the ED IMMEDIATELY if symptoms worsen or you have any concerns. If you cannot afford to follow up with your primary care physician a list of low cost clinics have been provided at the end of your discharge papers as well. Most prescribed medications have multiple side effects. The safest thing to do is when filling your prescription speak to your pharmacist regarding possible interactions with your normal home medications and over the counter medications such as Ibuprofen, Tylenol, Benadryl. If you experience any symptoms that cause you discomfort or concern you should discontinue the medication immediately and return to the emergency room or call your primary care physician. Prescriptions: Cephalexin Monohydrate [Keflex 500 mg Capsule] 500 mg PO BID 5 Days #10 capsule Sulfamethoxazole/Trimethoprim [Bactrim Ds Tablet] 1 each PO BID 7 Days #14 tablet Referrals: MARYA ESPINOZA DO [Primary Care Provider] - Follow up as needed
[2018-09-03] MEDS ORDERED: CEPHALEXIN 500 MG CAPSULE PO ONE (10:58)
[2018-09-03] MEDS ORDERED: SULFAMETHOXAZOLE/TRIMETHOPRIM 800-160 MG TABLET PO ONE (11:00)
[2018-09-03 11:09] VITALS: BP 120/79
== END 2018-09-03 11:12 | disposition home or self-care (01) ==
LOC: ER 08:18
DX: L72.0 Epidermal cyst (principal); Z88.0 Allergy status to penicillin; L08.9 Local infection of the skin and subcutaneous tissue, unspecified
CPT/HCPCS: 99283; 10160; J3490

== ENCOUNTER 2019-07-12 15:52 | Emergency (ER) | payer SELFPAY ==
[2019-07-12 15:58] VITALS: BP 112/85
[2019-07-12] MEDS ORDERED: IBUPROFEN 800 MG TABLET PO ONE (17:04)
--- NOTE | 2019-07-12 17:07 | ER Document Report ---
HPI - HPI Patient complains to provider of: Body aches Time Seen by Provider: 07/12/19 16:53 Onset: Other - Thursday Quality of pain: Achy Context: 38-year-old female presents emergency department with complaints of fever, chills, body aches and pains since Thursday. Denies fever vomiting diarrhea. Denies abdominal pain. Denies pain with void. Reports slight productive cough with clear sputum. Has not taken anything for fever because she has a hard time swallowing. Reports she received her flu vaccine in March. Associated Symptoms: Body/muscle aches, Fever - Little finger got slammed in bedroom door looks like the Exacerbated by: Denies Relieved by: Denies Similar symptoms previously: No Recently seen / treated by doctor: No - REPRODUCTIVE Reproductive: DENIES: : Past Medical History - General Information source: Patient - Social History Smoking Status: Current Every Day Smoker Frequency of alcohol use: None Drug Abuse: None Occupation: ma student Lives with: Family Family History: Reviewed & Not Pertinent, CAD, COPD, CVA, DM, Hypertension Patient has suicidal ideation: No Patient has homicidal ideation: No Pulmonary Medical History: Reports: Hx Asthma - as a child Renal/ Medical History: Denies: Hx Peritoneal Dialysis Surgical Hx: Negative - Immunizations Immunizations up to date: Yes Hx Diphtheria, Pertussis, Tetanus Vaccination: Yes Vertical Provider Document - CONSTITUTIONAL Agree With Documented VS: Yes Exam Limitations: No Limitations General Appearance: WD/WN, No Apparent Distress - nontoxic looking - INFECTION CONTROL TRAVEL OUTSIDE OF THE [place] IN LAST 30 DAYS: No - HEENT HEENT: Atraumatic, Normal ENT Exam, Normocephalic. negative: Conjuctival Injection, Pharyngeal Erythema, Tympanic Membrane Red, Tympanic Membrane Bulging - NECK Neck: Normal Inspection, Supple. negative: Lymphadenopathy-Left, Lymphadenopathy-Right - RESPIRATORY Respiratory: Breath Sounds Normal, No Respiratory Distress - CARDIOVASCULAR Cardiovascular: Regular Rhythm, Tachycardia - GI/ABDOMEN Gastrointestinal: Abdomen Soft, Abdomen Non-Tender - BACK Back: negative: CVA Tenderness-Right, CVA Tenderness-Left - MUSCULOSKELETAL/EXTREMETIES Musculoskeletal/Extremeties: MAEW, FROM, Non-Tender - NEURO Level of Consciousness: Awake, Alert, Appropriate Motor/Sensory: No Motor Deficit - DERM Integumentary: Warm, Dry Course - Re-evaluation Re-evalutation: 07/12/19 18:28 38-year-old female presents with body aches fever. Flu test is negative. Patient did receive her flu vaccine earlier this year. She was instructed on the importance of push fluids monitor temperature take Tylenol as indicated. She was also instructed on good handwashing. She verbalized understand all instructions. Laboratory 07/12/19 17:30 Influenza A (Rapid) NEGATIVE Influenza B (Rapid) NEGATIVE 07/12/19 19:26 On discharge it was discovered that patient's O2 sat was 92%. Patient had reported slight cough. Chest x-ray ordered. Patient declines chest x-ray per. Reports she feels better she is just ready go home. I instructed on her O2 sat. I instructed on signs and symptoms of respiratory distress. Patient was instructed to push fluids monitor temperature and give Tylenol or Motrin as indicated. Patient's respiratory rate even unlabored no distress. No retractions. She verbalized understanding to all instructions. - Vital Signs Vital signs: Temp Pulse Resp BP Pulse Ox 101.4 F H 133 H 18 112/85 94 07/12/19 15:56 07/12/19 15:56 07/12/19 15:56 07/12/19 15:56 07/12/19 15:56 Discharge - Discharge Clinical Impression: Body aches Fever Qualifiers: Fever type: unspecified Qualified Code(s): R50.9 - Fever, unspecified Condition: Stable Disposition: HOME, SELF-CARE Instructions: Acetaminophen Additional Instructions: *You have been evaluated for fever, body aches *Your flu test was negative *Increase fluid intake, good handwashing *Monitor your temperature, take Tylenol as indicated *Follow up with a primary care provider within 1 week for recheck *Return to ED for worsening condition, changes, needs Forms: Return to School Referrals: MARYA ESPINOZA DO [Primary Care Provider] - Follow up in 3-5 days
[2019-07-12 18:21] LABS: A TYPE INFLUENZA AG NEGATIVE (NEGATIVE); B INFLUENZA AG NEGATIVE (NEGATIVE)
== END 2019-07-12 19:25 | disposition home or self-care (01) ==
LOC: ER 15:52
DX: M79.10 Myalgia, unspecified site (principal); R50.9 Fever, unspecified; R05 Cough; R13.10 Dysphagia, unspecified; F17.200 Nicotine dependence, unspecified, uncomplicated
CPT/HCPCS: 87804; 99283

== ENCOUNTER 2019-07-13 06:35 | Emergency (ER) | payer SELFPAY ==
[2019-07-13] MEDS ORDERED: NORMAL SALINE 1000 ML 1,000 ML IV ONE ×2 (07:15→09:41)
[2019-07-13] MEDS ORDERED: METHYLPREDNISOLONE INJ 125 MG/2 ML SDV IV ONE (07:16)
[2019-07-13] MEDS ORDERED: IPRATROPIUM/ALBUTEROL 0.5-2.5 MG/3 ML AMPUL NEB ONE (07:17)
--- NOTE | 2019-07-13 07:23 | ER Document Report ---
ED General - General Chief Complaint: Breathing Difficulty Stated Complaint: DIFFICULTY BREATHING Time Seen by Provider: 07/13/19 07:01 Primary Care Provider: MARYA ESPINOZA DO [Primary Care Provider] - Follow up as needed TRAVEL OUTSIDE OF THE [place] IN LAST 30 DAYS: No - HPI Notes: Chief complaint: Shortness of breath, cough and fever 38-year-old female seen here another provider within the last 24 hours for flulike illness with negative flu swab now returning with complaints as above. Patient has a past history of asthma. She believes she is wheezing. No sputum production. Mildly dyspneic at rest. Temperature of 101 last night. Not currently on any regular medications. History of anaphylaxis to Augmentin. 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 To the best of her knowledge she is not been exposed to Covid19. No travel outside the area. She smokes 1 to 2 cigaret parisa/day. No long-term medications. - Related Data Allergies/Adverse Reactions: amoxicillin [From Augmentin] Allergy (Verified 07/12/19 16:53) clavulanic acid [From Augmentin] Allergy (Verified 07/12/19 16:53) Past Medical History - General Information source: Patient - Social History Smoking Status: Current Every Day Smoker Chew tobacco use (# tins/day): No Frequency of alcohol use: Occasional Drug Abuse: Marijuana Family History: Reviewed & Not Pertinent, CAD, COPD, CVA, DM, Hypertension Patient has suicidal ideation: No Patient has homicidal ideation: No Pulmonary Medical History: Reports: Hx Asthma - as a child Renal/ Medical History: Denies: Hx Peritoneal Dialysis - Immunizations Immunizations up to date: Yes Hx Diphtheria, Pertussis, Tetanus Vaccination: Yes Review of Systems - Review of Systems Notes: Constitutional: As per HPI. HENT: Negative for sore throat. Eyes: Negative for visual changes. Cardiovascular: Negative for chest pain. Respiratory: As per HPI. Gastrointestinal: Negative for abdominal pain, vomiting or diarrhea. Genitourinary: Negative for dysuria. Musculoskeletal: Negative for back pain. Skin: Negative for rash. Neurological: Negative for headaches, weakness or numbness. 10 point ROS negative except as marked above and in HPI. Physical Exam - Vital signs Vitals: Temp Pulse Resp BP Pulse Ox 99.0 F 130 H 24 H 133/76 H 92 07/13/19 06:46 07/13/19 06:46 07/13/19 06:46 07/13/19 06:46 07/13/19 06:46 - Notes Notes: GENERAL: Well-developed well-nourished appearing in no acute distress. SKIN: Good turgor no rashes. HEAD: Normocephalic atraumatic. EYES: PERRLA. EOMI. Conjunctivae and sclerae clear. EARS: CANALS AND TMS CLEAR. NOSE: CLEAR. MOUTH: Moist mucosa. Good dentition. No stridor or edema. No drooling. NECK: Supple. No masses or thyromegaly. No adenopathy. Carotids 2+ without bruits. No JVD. BACK: Symmetrical without tenderness. CHEST: Slight dry cough. Mildly tachypneic. No use of accessory muscles. End expiratory wheezes bilaterally. HEART: Tachycardic regular rhythm. No murmur gallop or rub. ABDOMEN: Soft nontender without masses, organomegaly or rebound. Bowel sounds normally active. No bruits. GENITALIA: Deferred. EXTREMITIES: No edema. No calf tenderness. Cap refill less than 1.5 seconds. Dorsalis pedis and posterior tibial pulses 3+ and symmetrical. NEUROLOGICAL: GCS 15. Alert and oriented x3. Normal gait. Fluent speech. Cranial nerves II through XII intact. Sensorimotor and cerebellar normal. Normal tone. PSYCHIATRIC: Appropriate affect. Course - Re-evaluation Re-evalutation: 07/13/19 07:23 O2 2 L via nasal cannula. Chest x-ray requested. DuoNeb treatments. IV normal saline. IV Solu-Medrol. CBC and comprehensive metabolic profile requested. 07/13/19 09:42 Patient feels much better at this time. Wheezes have resolved. 98% O2 sat on room air. Chest x-ray shows no infiltrates. Pulse rate is still 110 but this is after patient has received nebs. I am going to take her off oxygen and see if she can maintain an appropriate sat on room air and will also give her another liter of normal saline IV. Anticipate discharge. 07/13/19 11:27 Maintaining good saturation. Her chest is now entirely clear. No respiratory distress feels better and requesting discharge which I will feel be appropriate. - Vital Signs Vital signs: Temp Pulse Resp BP Pulse Ox 99.0 F 130 H 28 H 120/93 H 93 07/13/19 06:46 07/13/19 06:46 07/13/19 11:00 07/13/19 08:00 07/13/19 11:00 - Laboratory Result Diagrams: 07/13/19 06:59 07/13/19 06:59 Laboratory results interpreted by me: 07/13/19 07/13/19 06:59 06:59 RBC 5.88 H Hgb 16.4 H RDW 14.7 H Lymph % (Auto) 8.7 L Seg Neutrophils % 82.3 H AST 37 H Total Protein 8.6 H - EKG Interpretation by Me Additional EKG results interpreted by me: 07/13/19 07:24 Twelve-lead EKG from 0701 hrs. reviewed contemporaneously by me showing sinus tachycardia with a rate of 120. Normal QRS axis of 41 degrees. Normal intervals. No acute ST/T wave changes. Discharge - Discharge Clinical Impression: Acute viral syndrome Asthma exacerbation Qualifiers: Asthma severity: mild Asthma persistence: intermittent Qualified Code(s): J45.21 - Mild intermittent asthma with (acute) exacerbation Condition: Stable Disposition: HOME, SELF-CARE Prescriptions: Prednisone [Deltasone 20 mg Tablet] 2 tab PO DAILY 5 Days tablet Albuterol Sulfate [Proair HFA Inhalation Aerosol 8.5 gm MDI] 2 puff IH Q4H PRN #1 mdi PRN Reason: Forms: Smoking Cessation Education, Return to Work Referrals: MARYA ESPINOZA DO [Primary Care Provider] - Follow up as needed
[2019-07-13 07:40] LABS: ALBUMIN 4.7 g/dL (3.5-5.0); ALKALINE PHOSPHATASE 75 U/L (38-126); ANION GAP 12 (5-19); ASPARTATE AMINO TRANSFERASE 37 U/L (14-36); BILIRUBIN,DIRECT 0.4 mg/dL (0.0-0.4); BILIRUBIN,TOTAL 0.6 mg/dL (0.2-1.3); BLOOD UREA NITROGEN 9 mg/dL (7-20); CALCIUM 9.6 mg/dL (8.4-10.2); CARBON DIOXIDE 28 mmol/L (22-30); CHLORIDE 99 mmol/L (98-107); GLUCOSE 97 mg/dL (75-110); POTASSIUM 4.1 mmol/L (3.6-5.0); TOTAL PROTEIN 8.6 g/dL (6.3-8.2)
[2019-07-13 07:47] LABS: ABSOLUTE BASOPHILS # (AUTO) 0.1 10^3/uL (0.0-0.2); ABSOLUTE MONOCYTES (AUTO) 0.8 10^3/uL (0.1-1.4); EOSINOPHILS % (AUTO) 0.1 % (0-6); TOTAL CELLS COUNTED % (AUTO) 100 %
[2019-07-13 08:01] LABS: ABSOLUTE LYMPHOCYTES (AUTO) 0.8 10^3/uL (0.5-4.7); HEMATOCRIT 46.9 % (36.0-47.0); HEMOGLOBIN 16.4 g/dL (12.0-15.5); LYMPHOCYTES % (AUTO) 8.7 % (13-45); MEAN CORPUSCULAR HEMOGLOBIN 27.9 pg (27.0-33.4); MEAN CORPUSCULAR VOLUME 80 fl (80-97); MONOCYTES % (AUTO) 7.9 % (3-13); PLATELET COUNT 157 10^3/uL (150-450); RED BLOOD COUNT 5.88 10^6/uL (3.72-5.28); RED CELL DISTRIBUTION WIDTH 14.7 % (11.5-14.0); SEGMENTED NEUTROPHILS % (AUTO) 82.3 % (42-78); WHITE BLOOD COUNT 9.8 10^3/uL (4.0-10.5)
--- NOTE | 2019-07-13 08:30 | RADIOLOGY REPORT (SQ) ---
EXAM DESCRIPTION: CHEST SINGLE VIEW COMPLETED DATE/TIME: 07/13/2019 7:28 am REASON FOR STUDY: cough, dyspnea, fever COMPARISON: None. EXAM PARAMETERS: NUMBER OF VIEWS: One view. TECHNIQUE: Single frontal radiographic view of the chest acquired. RADIATION DOSE: NA LIMITATIONS: None. FINDINGS: LUNGS AND PLEURA: No opacities, masses or pneumothorax. No pleural effusion. MEDIASTINUM AND HILAR STRUCTURES: No masses. Contour normal. HEART AND VASCULAR STRUCTURES: Heart normal in size. Normal vasculature. BONES: No acute findings. HARDWARE: None in the chest. OTHER: No other significant finding. IMPRESSION: NO ACUTE RADIOGRAPHIC FINDING IN THE CHEST. TECHNICAL DOCUMENTATION: JOB ID: [id number] 2010 [employer]- All Rights Reserved Reading location - IP/workstation name: [email or web address]
[2019-07-13 11:47] VITALS: BP 128/62
--- NOTE | 2019-07-13 17:27 | EKG REPORT ---
SEVERITY:- ABNORMAL ECG - SINUS TACHYCARDIA DANIELLA, CONSIDER BIATRIAL ABNORMALITIES : Confirmed by: Nathanael Almonte 13-Jul-2019 17:26:32
== END 2019-07-13 11:45 | disposition home or self-care (01) ==
LOC: ER 06:35
DX: B34.9 Viral infection, unspecified (principal); J45.21 Mild intermittent asthma with (acute) exacerbation; R06.02 Shortness of breath; R05 Cough; R50.9 Fever, unspecified; R06.00 Dyspnea, unspecified; F17.210 Nicotine dependence, cigarettes, uncomplicated; Z88.1 Allergy status to other antibiotic agents; Z88.8 Allergy status to other drugs, medicaments and biological substances
CPT/HCPCS: 93005; 94640; 99285; 96361; 96374; 36415; 85025; 80053; 85379; 71045; 93010; J2930; J7030; J7620

== ENCOUNTER 2020-02-05 18:58 | Emergency (ER) | payer OTHER ==
[2020-02-05] MEDS ORDERED: IBUPROFEN 400 MG TABLET PO ONE (20:01)
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
[2020-02-05 20:22] LABS: APPEARANCE,URINE SLIGHTLY-CLOUDY; BILIRUBIN,URINE NEGATIVE (NEGATIVE); COLOR,URINE YELLOW; GLUCOSE, URINE NEGATIVE (NEGATIVE); KETONES,URINE NEGATIVE (NEGATIVE); LEUKOCYTE ESTERASE,URINE NEGATIVE (NEGATIVE); NITRITE,URINE NEGATIVE (NEGATIVE); PROTEIN,URINE NEGATIVE (NEGATIVE); URINE SPECIFIC GRAVITY 1.016
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
[2020-02-05] MEDS ORDERED: CYCLOBENZAPRINE HCL 10 MG TABLET PO ONE (21:39)
[2020-02-05 21:59] VITALS: BP 115/76
== END 2020-02-05 22:01 | disposition home or self-care (01) ==
LOC: ER 18:58
DX: S29.012A Strain of muscle and tendon of back wall of thorax, initial encounter (principal); S39.012A Strain of muscle, fascia and tendon of lower back, initial encounter; M25.552 Pain in left hip; V49.40XA Driver injured in collision with unspecified motor vehicles in traffic accident, initial encounter; F17.210 Nicotine dependence, cigarettes, uncomplicated
CPT/HCPCS: 99284; 81025; 81001; 72110; 72070; J3490